=== PATIENT | male | born 2005 | race Caucasian/White ===

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

== ENCOUNTER 2023-01-09 10:49 | Emergency (ER) | payer BC, MEDICAID ==
--- NOTE | 2023-01-09 11:45 | NUR ---
Pt brought in by family from home. Chief complaint, dog bite to right ante forearm. Pt states updated with vacinations of TDAP for self and for dogs pertinetn vaccines. Pt is 4/10 pain. No numbness denies tingly. Pt has less than 3 seconds cap refill. Pt wound flushed with 200 ml sterile water and controlled bleed to the abrasions.
--- NOTE | 2023-01-09 11:52 | NUR ---
ER at bedside examining patient.
[2023-01-09] MEDS ORDERED: AMOX-423 PO (11:56)
[2023-01-09] MEDS ORDERED: BACITRACIN 1 GM OINT TP ONE (12:00)
--- NOTE | 2023-01-09 12:15 | NUR ---
Patient given written and verbal discharge instructions and verbalizes understanding. ER MD discussed with patient the results and treatment provided. Patient in stable condition. ID arm band removed. Opportunity for questions provided and answered. Medication side effect fact sheet provided.
[2023-01-09 13:30] VITALS: BP_SYST 111
[2023-01-09 13:50] VITALS: BP_SYST 128
== END 2023-01-09 13:50 | disposition home or self-care (01) ==
LOC: SED 10:49
DX: S51.831A Puncture wound without foreign body of right forearm, initial encounter (principal); Z79.899 Other long term (current) drug therapy; W54.0XXA Bitten by dog, initial encounter; Y93.89 Activity, other specified; Y92.89 Other specified places as the place of occurrence of the external cause; Y99.8 Other external cause status
CPT/HCPCS: 73090; 99283